=== PATIENT | male | born 1980 | race Two or more races ===

== ENCOUNTER 2023-12-03 20:56 | Emergency (ER) | payer BC, OTHER ==
[~2023-12-03] VITALS: Ht 167.6 cm; Wt 98.4 kg
[2023-12-03 21:07] VITALS: BP 160/81; PULSE 79; RESP 20; TEMP 98; O2SAT 97
[2023-12-03] MEDS ORDERED: AMOX875T4 PO (21:26)
== END 2023-12-03 21:32 | disposition home or self-care (01) ==
LOC: ER 20:56
DX: J01.90 Acute sinusitis, unspecified (principal)

== ENCOUNTER → 2024-01-01 | Outpatient (CLI) | payer BC ==
[~2024-01-01] MED LIST: AMOX875T4 PO
[2024-01-01 09:37] LABS: Urine Bacteria None Seen /hpf (None Seen)
[2024-01-01 10:01] LABS: Basophils # (auto) 0.1 10 ^3/uL (0-0.2); Basophils % (auto) 0.6 % (0.0-2.0); Eosinophils # (auto) 0 10 ^3/uL (0-0.8); Eosinophils % (auto) 0.2 % (0.0-7.0); Hemoglobin 15.8 g/dL (13.5-17.5); Lymphocytes # (auto) 4.2 10 ^3/uL (0.4-5.4); Lymphocytes % (auto) 31.6 % (10.0-50.0); Mean Corpuscular Hemoglobin 29.2 pg (28.0-32.0); Mean Corpuscular Hgb Conc. 34.4 g/dL (32.0-36.0); Monocytes # (auto) 0.8 10 ^3/uL (0-1.3); Monocytes % (auto) 5.9 % (0.0-12.0); Neutrophils # (auto) 8.3 10 ^3/uL (1.6-8.6); Neutrophils % (auto) 61.7 % (37.0-80.0); Nucleated Red Blood Cells % 0.1 %; Platelet Count (auto) 270 10^3/uL (140-450); Red Blood Cells 5.41 10^6/uL (4.5-5.90); Red Cell Distribution Width 13.3 % (11.8-14.3); White Blood Cell 13.4 10^3/uL (4.4-10.8)
[2024-01-01 10:14] LABS: Urine Blood TRACE /uL (Negative); Urine Clarity Clear (Clear); Urine Color Light-Yellow (Yellow); Urine Protein, UAD Negative (Negative); Urine Specific Gravity 1.028 (1.001-1.035); Urine Urobilinogen Normal (Negative); Urine WBC 1 /hpf (0 - 3)
[2024-01-01 10:26] LABS: Alanine Aminotransferase 25 U/L (7-40); Albumin 4.6 g/dL (3.2-4.8); Alkaline Phosphatase 79 U/L (46-116); Anion Gap 7 (5-15); BUN/Creatinine Ratio 14.8 (10.0-20.0); Blood Urea Nitrogen 16 mg/dL (9-23); Carbon Dioxide 29 mmol/L (20-31); Chloride 107 mmol/L (98-107); Glucose 82 mg/dL (74-106); LDL Cholesterol 158 mg/dL (< 100); Potassium 3.9 mmol/L (3.5-5.1); Sodium 143 mmol/L (136-145); Triglycerides 190 mg/dL (< 150)
[2024-01-01 10:27] LABS: Aspartate Aminotransferase 13 U/L (13-40); Cholesterol 218 mg/dL (< 200); HDL Cholesterol 39 mg/dL (40-59)
[2024-01-01 10:28] LABS: Bilirubin, Total 0.6 mg/dL (0.2-1.0); Total Protein 7.9 g/dL (5.7-8.2)
== END | disposition home or self-care (01) ==
LOC: LAB 09:15
PROVIDERS: ATTEND Student in an Organized Health Care Education/Training Program
DX: R73.9 Hyperglycemia, unspecified (principal); R03.0 Elevated blood-pressure reading, without diagnosis of hypertension; J30.2 Other seasonal allergic rhinitis
CPT/HCPCS: 36415; 80053; 80061; 81001; 82785; 83036; 84443; 85025; 86003

== ENCOUNTER 2024-07-23 15:56 | Outpatient (CLI) | payer BC ==
[2024-07-23 16:15] LABS: Basophils # (auto) 0.1 10 ^3/uL (0-0.2); Basophils % (auto) 0.8 % (0.0-2.0); Eosinophils # (auto) 0.1 10 ^3/uL (0-0.8); Eosinophils % (auto) 0.8 % (0.0-7.0); Hematocrit 47.5 % (41.0-53.0); Hemoglobin 16.3 g/dL (13.5-17.5); Lymphocytes # (auto) 3.4 10 ^3/uL (0.4-5.4); Lymphocytes % (auto) 36.8 % (10.0-50.0); Mean Corpuscular Hemoglobin 28.7 pg (28.0-32.0); Mean Corpuscular Hgb Conc. 34.4 g/dL (32.0-36.0); Mean Corpuscular Volume 83.4 fL (80.0-100.0); Monocytes # (auto) 0.6 10 ^3/uL (0-1.3); Monocytes % (auto) 6.1 % (0.0-12.0); Neutrophils # (auto) 5.2 10 ^3/uL (1.6-8.6); Neutrophils % (auto) 55.5 % (37.0-80.0); Nucleated Red Blood Cells % 0.2 %; Platelet Count (auto) 254 10^3/uL (140-450); Red Blood Cells 5.69 10^6/uL (4.5-5.90); Red Cell Distribution Width 13.7 % (11.8-14.3); White Blood Cell 9.3 10^3/uL (4.4-10.8)
[2024-07-23 16:23] LABS: Urine Bacteria None Seen /hpf (None Seen); Urine Blood Negative /uL (Negative); Urine Clarity Clear (Clear); Urine Color Light-Yellow (Yellow); Urine Mucus FEW (None Seen); Urine Protein, UAD Negative (Negative); Urine Specific Gravity 1.025 (1.001-1.035); Urine Squamous Epithelial Cell FEW /hpf (<5); Urine Urobilinogen Normal (Negative); Urine WBC 1 /HPF (0-3); Urine pH 5.5 (5.0-9.0)
[2024-07-23 16:31] LABS: Alanine Aminotransferase 25 U/L (7-40); Alkaline Phosphatase 87 U/L (46-116); Anion Gap 8 (5-15); Aspartate Aminotransferase 22 U/L (13-40); BUN/Creatinine Ratio 13.9 (10.0-20.0); Blood Urea Nitrogen 15 mg/dL (9-23); Calcium 10.2 mg/dL (8.7-10.4); Carbon Dioxide 28 mmol/L (20-31); Chloride 105 mmol/L (98-107); Glucose 85 mg/dL (74-106); Potassium 4.2 mmol/L (3.5-5.1); Sodium 141 mmol/L (136-145)
[2024-07-23 16:32] LABS: Bilirubin, Total 0.7 mg/dL (0.2-1.0)
[2024-07-23 16:40] LABS: Albumin 4.9 g/dL (3.2-4.8); Cholesterol 213 mg/dL (< 200); HDL Cholesterol 35 mg/dL (40-59); LDL Cholesterol 139 mg/dL (< 100); Triglycerides 239 mg/dL (< 150)
== END 2024-07-23 17:00 | disposition home or self-care (01) ==
LOC: LAB 15:56
PROVIDERS: ATTEND Student in an Organized Health Care Education/Training Program
DX: E78.5 Hyperlipidemia, unspecified (principal); E55.9 Vitamin D deficiency, unspecified; N52.9 Male erectile dysfunction, unspecified; R03.0 Elevated blood-pressure reading, without diagnosis of hypertension; R73.9 Hyperglycemia, unspecified
CPT/HCPCS: 36415; 80053; 80061; 81001; 82306; 83036; 84403; 84443; 85025